=== PATIENT | male | born 1950 | race Caucasian/White ===

== ENCOUNTER 2023-09-06 15:29 | Inpatient (IN) | payer MEDICARE, OTHER ==
[~2023-09-06] VITALS: Ht 170.2 cm; Wt 60.3 kg
[2023-09-06] MEDS: IV NORMAL SALINE 1000 ML BAG IV ONE ×3 (15:55→20:30)
[2023-09-06 16:06] LABS: BASOPHILS % (AUTO) 0.2 % (0.0-2.0); EOSINOPHILS # (AUTO) 0.7 K/uL (0.0-0.7); EOSINOPHILS % (AUTO) 8.5 % (0.0-7.0); HEMATOCRIT 30.2 % (36.7-47.1); HEMOGLOBIN 9.8 g/dL (12.5-16.3); LYMPHOCYTES # (AUTO) 1.6 K/uL (0.8-4.8); LYMPHOCYTES % (AUTO) 18.7 % (20.5-51.5); MEAN CORPUSCULAR HEMOGLOBIN 28.6 uug (23.8-33.4); MEAN CORPUSCULAR HGB CONC 33 g/dL (32.5-36.3); MEAN CORPUSCULAR VOLUME 88.1 fL (73.0-96.2); MONOCYTES # (AUTO) 0.5 K/uL (0.1-1.30); MONOCYTES % (AUTO) 6.2 % (0.0-11.0); NEUTROPHILS # (AUTO) 5.5 K/uL (1.8-8.9); NEUTROPHILS % (AUTO) 66.4 % (38.5-71.5); PLATELET COUNT (AUTO) 188 K/uL (152-348); RED BLOOD CELL COUNT(AUTO) 3.43 MIL/uL (4.06-5.63); RED CELL DISTRIBUTION WIDTH 16.2 % (12.1-16.2); WHITE BLOOD COUNT (AUTO) 8.3 K/uL (3.6-10.2)
[2023-09-06 16:10] LABS: DIFFERENTIAL COMMENT 1
[2023-09-06 16:21] LABS: CALCIUM 8.7 mg/dL (8.5-10.1); CARBON DIOXIDE 32 mmol/L (21-32); CHLORIDE 104 mmol/L (98-107); CREATININE 0.9 mg/dL (0.6-1.3); GLUCOSE 207 mg/dL (74-106); POTASSIUM 3.3 mmol/L (3.5-5.1); SODIUM SERUM 142 mmol/L (136-145); UREA NITROGEN, BLOOD 12 mg/dL (7-18)
[2023-09-06 16:35] LABS: ALANINE AMINOTRANSFERASE 19 U/L (16-63); ALBUMIN 3.1 g/dL (3.4-5.0); ALKALINE PHOSPHATASE 232 U/L (50-136); ASPARTATE AMINOTRANSFERASE 21 U/L (15-37); BILIRUBIN,DIRECT 0.1 mg/dL (0.0-0.2); BILIRUBIN,TOTAL 0.4 mg/dL (0.2-1.0); TOTAL PROTEIN, SERUM 6.7 g/dL (6.4-8.2)
[2023-09-06 16:39] LABS: LACTIC ACID 2.1 mmol/L (0.4-2.0)
[2023-09-06] MEDS ORDERED: LORAZEPAM 2 MG/1 ML VIAL ONE (20:19)
[2023-09-06] MEDS ORDERED: PIPERACILLIN/TAZOBACTAM/D5W 50 ML IV ONE (20:20)
[2023-09-06] MEDS: LORAZEPAM 2 MG/1 ML VIAL IV ONE (20:30)
[2023-09-06] MEDS: PIPERACILLIN SODIUM/TAZOBACTAM 3.375 G in IV DEXTROSE 5% 50 ML IV ONE (20:30)
[2023-09-06] MEDS ORDERED: ONDANSETRON 4 MG/2 ML VIAL IV PRN (22:15)
[2023-09-06] MEDS ORDERED: MAGNESIUM HYDROXIDE 30 ML LIQUID UDC PO PRN (22:15)
[2023-09-06] MEDS ORDERED: HALOPERIDOL LACTATE 5 MG/1 ML VIAL ONE (22:39)
[2023-09-06] MEDS: HALOPERIDOL LACTATE 5 MG/1 ML VIAL IV ONE (22:42)
[2023-09-06 22:57] LABS: *BILIRUBIN,URIN NEGATIVE (NEGATIVE); *BLOOD, URINE NEGATIVE (NEGATIVE); *CLARITY,URINE CLEAR (CLEAR); *COLOR,URINE YELLOW (YELLOW); *KETONES,URINE NEGATIVE (NEGATIVE); *PROTEIN,URINE NEGATIVE (NEGATIVE); *UROBILINOGEN,URINE 0.2 E.U./dl (NORMAL); LEUKOCYTE ESTERASE ,URINE NEGATIVE (NEGATIVE); NITRITE, URINE NEGATIVE (NEGATIVE); UGLUCOSE TRACE (NEGATIVE)
[2023-09-07 00:09] LABS: BACTERIA,URINE FEW /HPF (NONE SEEN); RBC,URINE 0-3 /HPF (0-3); WBC,URINE NONE SEEN /HPF (0-3)
[2023-09-07 00:10] LABS: SQUAMOUS EPITHELIAL CELL,UR FEW /HPF (NONE SEEN)
[2023-09-07 00:26] VITALS: BP 142/86; TEMP 98; O2SAT 96
[2023-09-07] MEDS ORDERED: VANCOMYCIN IV 200 ML ONE (00:42)
[2023-09-07] MEDS ORDERED: PIPERACILLIN SODIUM/TAZO 3.375 GM VIAL ONE (00:43)
[2023-09-07] MEDS ORDERED: IV 0.9% SODIUM CHLORID+ 20 KCL 1,000 ML ONE (00:43)
[2023-09-07] MEDS: VANCOMYCIN IV 1,000 MG in IV DEXTROSE 5% 250 ML IV ONE (01:01)
[2023-09-07] MEDS: POTASSIUM CHLORIDE 20 MEQ in IV NS 1000 ML 1,000 ML IV PRN (02:39)
[2023-09-07 04:25] VITALS: BP 123/66; TEMP 97.9; O2SAT 95
[2023-09-07] MEDS: PIPERACILLIN SODIUM/TAZOBACTAM 3.375 G in IV DEXTROSE 5% 50 ML IV ONE (05:50)
[2023-09-07] MEDS: PANTOPRAZOLE SODIUM 40 MG TABLET.DR PO SCH (06:13)
[2023-09-07 07:44] LABS: BASOPHILS % (AUTO) 0.8 % (0.0-2.0); EOSINOPHILS # (AUTO) 0.1 K/uL (0.0-0.7); EOSINOPHILS % (AUTO) 1.2 % (0.0-7.0); HEMATOCRIT 31.3 % (36.7-47.1); HEMOGLOBIN 10.2 g/dL (12.5-16.3); LYMPHOCYTES # (AUTO) 1.9 K/uL (0.8-4.8); LYMPHOCYTES % (AUTO) 30.6 % (20.5-51.5); MEAN CORPUSCULAR HEMOGLOBIN 28.3 uug (23.8-33.4); MEAN CORPUSCULAR HGB CONC 33 g/dL (32.5-36.3); MEAN CORPUSCULAR VOLUME 86.6 fL (73.0-96.2); MONOCYTES # (AUTO) 0.6 K/uL (0.1-1.30); MONOCYTES % (AUTO) 10.4 % (0.0-11.0); NEUTROPHILS # (AUTO) 3.6 K/uL (1.8-8.9); PLATELET COUNT (AUTO) 165 K/uL (152-348); RED BLOOD CELL COUNT(AUTO) 3.62 MIL/uL (4.06-5.63); WHITE BLOOD COUNT (AUTO) 6.2 K/uL (3.6-10.2)
[2023-09-07 07:52] LABS: DIFFERENTIAL COMMENT 1
[2023-09-07 08:00] VITALS: BP 168/105; TEMP 97.9; O2SAT 96
[2023-09-07 08:08] LABS: AMMONIA < 10 umol/L (11-32); THYROID STIMULATING HORMONE 3.135 mIU/mL (0.358-3.740)
[2023-09-07 08:24] LABS: ALANINE AMINOTRANSFERASE 20 U/L (16-63); ALBUMIN 2.6 g/dL (3.4-5.0); ALKALINE PHOSPHATASE 214 U/L (50-136); ASPARTATE AMINOTRANSFERASE 12 U/L (15-37); BILIRUBIN,TOTAL 0.6 mg/dL (0.2-1.0); CARBON DIOXIDE 29 mmol/L (21-32); CHLORIDE 109 mmol/L (98-107); CHOLESTEROL 135 mg/dL (<200); CREATININE 0.8 mg/dL (0.6-1.3); GLUCOSE 190 mg/dL (74-106); HDL CHOLESTEROL 56 mg/dL (40-60); IRON, SERUM 46 ug/dL (50-175); MAGNESIUM 1.4 mg/dL (1.8-2.4); PHOSPHOROUS 4.2 mg/dL (2.5-4.9); POTASSIUM 3.5 mmol/L (3.5-5.1); SODIUM SERUM 145 mmol/L (136-145); TRIGLYCERIDES 148 MG/DL (30-150); UREA NITROGEN, BLOOD 7 mg/dL (7-18)
[2023-09-07 09:06] LABS: CALCIUM 8.3 mg/dL (8.5-10.1); LIPASE < 10 U/L (16-77)
[2023-09-07] MEDS: MORPHINE SULFATE 2 MG/1 ML DISP.SYRIN IV PRN (09:25)
[2023-09-07 11:40] VITALS: BP 158/100; TEMP 97.6; O2SAT 97
[2023-09-07] MEDS: ACETAMINOPHEN 325 MG TABLET PO PRN (12:56)
[2023-09-07] MEDS ORDERED: PIPERACILLIN SODIUM/TAZOBACTAM 3.375 G in IV DEXTROSE 5% 50 ML IV SCH (14:00)
[2023-09-07] MEDS: PIPERACILLIN SODIUM/TAZOBACTAM 3.375 G in IV DEXTROSE 5% 100 ML IV SCH (14:57)
[2023-09-07 16:25] VITALS: BP 155/91; TEMP 98.3; O2SAT 97
[2023-09-07] MEDS: VANCOMYCIN IV 1,000 MG in IV DEXTROSE 5% 250 ML IV SCH (16:26)
[2023-09-07] MEDS ORDERED: AMLO1CAP2 PO (18:04)
[2023-09-07] MEDS ORDERED: BLOO-360 IN (18:04)
[2023-09-07] MEDS ORDERED: ACET-2605 PO (18:04)
[2023-09-07] MEDS ORDERED: APIX5TAB4 PO (18:05)
[2023-09-07] MEDS ORDERED: LORA0.5T48 PO (18:06)
[2023-09-07] MEDS ORDERED: DIPH1TAB PO (18:06)
[2023-09-07] MEDS ORDERED: ENTE0.5T11 PO (18:08)
[2023-09-07] MEDS ORDERED: FLUD0.1T PO (18:08)
[2023-09-07] MEDS ORDERED: INSU100V7 SQ ×2 (18:09→18:10)
[2023-09-07] MEDS ORDERED: GLUCOSE TABLET PO (18:09)
[2023-09-07] MEDS ORDERED: INSU100V39 SQ (18:11)
[2023-09-07] MEDS ORDERED: AMYL1CAP58 PO (18:11)
[2023-09-07] MEDS ORDERED: MESA1.2T3 PO (18:12)
[2023-09-07] MEDS ORDERED: OLAN10TA6 PO (18:13)
[2023-09-07] MEDS ORDERED: MIRT-93 PO (18:13)
[2023-09-07] MEDS ORDERED: PANT40TA49 PO (18:15)
[2023-09-07] MEDS ORDERED: PRED2.5T PO (18:15)
[2023-09-07] MEDS ORDERED: PRED-170 PO (18:16)
[2023-09-07] MEDS ORDERED: TADA5TAB13 PO (18:18)
[2023-09-07] MEDS ORDERED: ROSU5TAB PO (18:18)
[2023-09-08] MEDS ORDERED: CEFEPIME HCL 1 G VIAL ONE (01:50)
[2023-09-08] MEDS: CEFEPIME HCL 1 G in IV DEXTROSE 5% 50 ML IV SCH ×2 (02:08→10:43)
[2023-09-08 06:51] LABS: CALCIUM 8.4 mg/dL (8.5-10.1); CREATININE 0.8 mg/dL (0.6-1.3); POTASSIUM 3.6 mmol/L (3.5-5.1)
[2023-09-08 06:54] LABS: BASOPHILS % (AUTO) 0.4 % (0.0-2.0); EOSINOPHILS # (AUTO) 0.2 K/uL (0.0-0.7); EOSINOPHILS % (AUTO) 2.2 % (0.0-7.0); HEMATOCRIT 32.5 % (36.7-47.1); HEMOGLOBIN 10.7 g/dL (12.5-16.3); LYMPHOCYTES # (AUTO) 1.9 K/uL (0.8-4.8); LYMPHOCYTES % (AUTO) 25.7 % (20.5-51.5); MEAN CORPUSCULAR HEMOGLOBIN 28.3 uug (23.8-33.4); MEAN CORPUSCULAR HGB CONC 33 g/dL (32.5-36.3); MONOCYTES # (AUTO) 0.9 K/uL (0.1-1.30); MONOCYTES % (AUTO) 12.3 % (0.0-11.0); NEUTROPHILS # (AUTO) 4.4 K/uL (1.8-8.9); NEUTROPHILS % (AUTO) 59.4 % (38.5-71.5); PLATELET COUNT (AUTO) 166 K/uL (152-348); RED BLOOD CELL COUNT(AUTO) 3.78 MIL/uL (4.06-5.63); RED CELL DISTRIBUTION WIDTH 16.2 % (12.1-16.2); WHITE BLOOD COUNT (AUTO) 7.4 K/uL (3.6-10.2)
[2023-09-08 07:04] LABS: DIFFERENTIAL COMMENT 1
[2023-09-08 07:55] VITALS: BP 146/98; TEMP 98.1; O2SAT 97
[2023-09-08 08:12] LABS: FERRITIN 64 ng/mL (26-388); LACTATE DEHYDROGENASE 232 U/L (85-227)
[2023-09-08] MEDS ORDERED: DEXTROSE 50% 50 ML DISP.SYRIN IV PRN (11:15)
[2023-09-08] MEDS ORDERED: ACETAMINOPHEN ES 500 MG TABLET- SA PATIENTS-PAIN ONLY PO PRN (11:15)
[2023-09-08] MEDS ORDERED: OLANZAPINE 5 MG TABLET PO SCH (11:15)
[2023-09-08] MEDS ORDERED: HOME MED MISCELLANEOUS XX SCH ×3 (11:15)
[2023-09-08] MEDS ORDERED: predniSONE 5 MG TABLET PO SCH (11:15)
[2023-09-08] MEDS ORDERED: PANTOPRAZOLE SODIUM 40 MG TABLET.DR PO SCH (11:15)
[2023-09-08] MEDS ORDERED: ENTECAVIR 0.5 MG PO SCH (11:15)
[2023-09-08] MEDS: FLUDROCORTISONE ACETATE 0.1 MG TABLET PO SCH (11:52)
[2023-09-08] MEDS: AMLODIPINE 5 MG TABLET PO SCH (11:52)
[2023-09-08] MEDS: BENAZEPRIL HCL 20 MG TABLET PO SCH (11:52)
[2023-09-08 11:55] VITALS: BP 137/94; TEMP 98; O2SAT 97
[2023-09-08] MEDS: APIXABAN 5 MG TABLET PO SCH (11:56)
[2023-09-08] MEDS: BLOOD SUGAR DIAGNOSTIC 1 EACH STRIP VI SCH (11:57)
[2023-09-08] MEDS: INSULIN REGULAR, HUMAN 300 UNIT/3 ML VIAL SQ PRN (12:00)
[2023-09-08] MEDS: LIPASE/PROTEASE/AMYLASE 4200 UNITS CAPSULE.DR PO SCH (13:26)
[2023-09-08] MEDS: OLANZAPINE ZYDIS 5 MG TAB.RAPDIS PO SCH (13:29)
[2023-09-08 14:19] LABS: HIV-1/2 ANTIBODY NON REACTIVE (NONREACTIVE)
[2023-09-08 14:20] LABS: HIV-1 p24 ANTIGEN NON REACTIVE (NONREACTIVE)
[2023-09-08] MEDS: predniSONE 2.5 MG TABLET PO SCH (14:33)
[2023-09-08 16:00] VITALS: BP 117/77; TEMP 97.7; O2SAT 98
[2023-09-08] MEDS ORDERED: VENL75CA62 PO (16:10)
[2023-09-08] MEDS: DIPHENOXYLATE HCL/ATROP SULF TABLET PO SCH (16:44)
[2023-09-08] MEDS: VENLAFAXINE XR 75 MG TAB.ER.24H PO SCH (16:48)
[2023-09-08] MEDS: VANCOMYCIN IV 1,000 MG in IV DEXTROSE 5% 250 ML IV SCH (18:43)
[2023-09-08] MEDS ORDERED: IV NORMAL SALINE 250 ML IV ONE (19:42)
[2023-09-08] MEDS ORDERED: SWABABLE VALVE TRANSFER SET EA MC ONE (19:42)
[2023-09-08] MEDS ORDERED: IOHEXOL 350 100 ML INFUS..BTL ONE (19:43)
[2023-09-08] MEDS: LORAZEPAM 0.5 MG TABLET PO SCH (20:38)
[2023-09-08] MEDS: MIRTAZAPINE 15 MG TAB.RAPDIS SL SCH (20:39)
[2023-09-08] MEDS: ATORVASTATIN 10 MG TABLET PO SCH (20:39)
[2023-09-08 20:42] VITALS: BP 134/73; TEMP 99.4; O2SAT 93
[2023-09-08] MEDS: INSULIN GLARGINE,HUM 300 UNITS/3 ML CARTRIDGE SQ SCH (20:55)
[2023-09-08] MEDS ORDERED: MIRTAZAPINE 15 MG TABLET PO SCH (21:00)
[2023-09-09] VITALS (7 sets, daily range): BP systolic 103–130; BP diastolic 44–80; TEMP 97.6–98.6; O2SAT 92–97
[2023-09-09 07:48] LABS: BASOPHILS % (AUTO) 0.5 % (0.0-2.0); EOSINOPHILS # (AUTO) 0.2 K/uL (0.0-0.7); EOSINOPHILS % (AUTO) 4.6 % (0.0-7.0); HEMOGLOBIN 10.3 g/dL (12.5-16.3); LYMPHOCYTES # (AUTO) 1.2 K/uL (0.8-4.8); LYMPHOCYTES % (AUTO) 22.5 % (20.5-51.5); MEAN CORPUSCULAR HEMOGLOBIN 28.8 uug (23.8-33.4); MEAN CORPUSCULAR HGB CONC 33 g/dL (32.5-36.3); MEAN CORPUSCULAR VOLUME 86.9 fL (73.0-96.2); MONOCYTES # (AUTO) 0.7 K/uL (0.1-1.30); NEUTROPHILS # (AUTO) 3.2 K/uL (1.8-8.9); NEUTROPHILS % (AUTO) 59.4 % (38.5-71.5); PLATELET COUNT (AUTO) 122 K/uL (152-348); RED BLOOD CELL COUNT(AUTO) 3.57 MIL/uL (4.06-5.63); RED CELL DISTRIBUTION WIDTH 16.2 % (12.1-16.2); WHITE BLOOD COUNT (AUTO) 5.4 K/uL (3.6-10.2)
[2023-09-09 07:50] LABS: CALCIUM 8.2 mg/dL (8.5-10.1); CREATININE 0.8 mg/dL (0.6-1.3); POTASSIUM 3.8 mmol/L (3.5-5.1)
[2023-09-09 08:06] LABS: FOLATE (FOLIC ACID), SERUM >20.0 ng/mL (>3.0)
[2023-09-09 08:12] LABS: DIFFERENTIAL COMMENT 1
[2023-09-09] MEDS: predniSONE 5 MG TABLET PO SCH (08:19)
[2023-09-09] MEDS ORDERED: INSULIN GLARGINE,HUM 300 UNITS/3 ML CARTRIDGE SQ SCH (09:00)
[2023-09-09 11:06] LABS: AFP, TUMOR MARKER <1.8 ng/mL (0.0-8.4); CARBOHYDRATE ANTIGEN, 19-9 40 U/mL (0-35); CARCINOEMBRYONIC AG (CEA) 3.4 ng/mL (0.0-4.7)
[2023-09-09 12:12] LABS: *IMMUNOGLOBULIN G, SERUM 993 mg/dL (603-1613); IMMUNOGLOBULIN A, SERUM 114 mg/dL (61-437); IMMUNOGLOBULIN M, SERUM 91 mg/dL (15-143)
[2023-09-09 15:07] LABS: A/G RATIO 1.1 (0.7-1.7); ALBUMIN 2.8 g/dL (2.9-4.4); ALPHA-1-GLOBULIN 0.3 g/dL (0.0-0.4); ALPHA-2-GLOBULIN 0.7 g/dL (0.4-1.0); BETA GLOBULIN 0.8 g/dL (0.7-1.3); FREE LAMBDA LT CHAIN SERUM 20.1 mg/L (5.7-26.3); GAMMA GLOBULIN 0.8 g/dL (0.4-1.8); GLOBULIN, TOTAL 2.6 g/dL (2.2-3.9); KAPPA/LAMBDA RATIO SERUM 1.49 (0.26-1.65); M-SPIKE Not Observed g/dL (Not Observed)
[2023-09-10 00:10] VITALS: BP 102/54; TEMP 98.6; O2SAT 98
[2023-09-10 04:35] VITALS: BP 120/74; TEMP 98.2; O2SAT 98
[2023-09-10 07:16] LABS: BASOPHILS # (AUTO) 0.3 K/UL (0.0-0.2); EOSINOPHILS # (AUTO) 0.2 K/uL (0.0-0.7); EOSINOPHILS % (AUTO) 3.9 % (0.0-7.0); HEMATOCRIT 31.1 % (36.7-47.1); HEMOGLOBIN 9.8 g/dL (12.5-16.3); LYMPHOCYTES # (AUTO) 1.6 K/uL (0.8-4.8); LYMPHOCYTES % (AUTO) 25.2 % (20.5-51.5); MEAN CORPUSCULAR HEMOGLOBIN 28.5 uug (23.8-33.4); MEAN CORPUSCULAR HGB CONC 32 g/dL (32.5-36.3); MONOCYTES # (AUTO) 0.7 K/uL (0.1-1.30); MONOCYTES % (AUTO) 10.1 % (0.0-11.0); NEUTROPHILS # (AUTO) 3.7 K/uL (1.8-8.9); NEUTROPHILS % (AUTO) 56.8 % (38.5-71.5); PLATELET COUNT (AUTO) 131 K/uL (152-348); RED BLOOD CELL COUNT(AUTO) 3.45 MIL/uL (4.06-5.63); RED CELL DISTRIBUTION WIDTH 16.5 % (12.1-16.2); WHITE BLOOD COUNT (AUTO) 6.5 K/uL (3.6-10.2)
[2023-09-10 07:37] LABS: DIFFERENTIAL COMMENT 1
[2023-09-10 07:39] LABS: CALCIUM 8.2 mg/dL (8.5-10.1); CARBON DIOXIDE 29 mmol/L (21-32); CHLORIDE 105 mmol/L (98-107); GLUCOSE 105 mg/dL (74-106); POTASSIUM 3.5 mmol/L (3.5-5.1); SODIUM SERUM 141 mmol/L (136-145); UREA NITROGEN, BLOOD 7 mg/dL (7-18)
[2023-09-10 07:51] VITALS: BP 130/75; TEMP 97.5; O2SAT 95
[2023-09-10] MEDS: CREON 24000 UNIT PO SCH (09:51)
[2023-09-10] MEDS: MESALAMINE 1.2 GM PO SCH (09:51)
[2023-09-10] MEDS: TADALAFIL 5 MG PO SCH (09:54)
[2023-09-10 11:27] VITALS: BP 163/91; TEMP 99.1; O2SAT 94
[2023-09-10 15:57] VITALS: BP 143/71; TEMP 97.5; O2SAT 98
[2023-09-10 19:45] VITALS: BP 110/64; TEMP 98.2; O2SAT 98
[2023-09-10] MEDS: INSULIN GLARGINE,HUM 300 UNITS/3 ML CARTRIDGE SQ ONE (21:38)
[2023-09-11 05:54] VITALS: BP 105/55; TEMP 98.3; O2SAT 98
[2023-09-11 07:28] LABS: BASOPHILS % (AUTO) 0.2 % (0.0-2.0); EOSINOPHILS # (AUTO) 0.2 K/uL (0.0-0.7); EOSINOPHILS % (AUTO) 2.3 % (0.0-7.0); HEMATOCRIT 28.7 % (36.7-47.1); HEMOGLOBIN 9.2 g/dL (12.5-16.3); LYMPHOCYTES # (AUTO) 2.2 K/uL (0.8-4.8); LYMPHOCYTES % (AUTO) 23.8 % (20.5-51.5); MEAN CORPUSCULAR HEMOGLOBIN 28.3 uug (23.8-33.4); MEAN CORPUSCULAR HGB CONC 32 g/dL (32.5-36.3); MEAN CORPUSCULAR VOLUME 88.8 fL (73.0-96.2); MONOCYTES # (AUTO) 0.7 K/uL (0.1-1.30); MONOCYTES % (AUTO) 8.1 % (0.0-11.0); NEUTROPHILS % (AUTO) 65.6 % (38.5-71.5); PLATELET COUNT (AUTO) 128 K/uL (152-348); RED BLOOD CELL COUNT(AUTO) 3.23 MIL/uL (4.06-5.63); RED CELL DISTRIBUTION WIDTH 16.5 % (12.1-16.2); WHITE BLOOD COUNT (AUTO) 9.2 K/uL (3.6-10.2)
[2023-09-11 07:37] LABS: DIFFERENTIAL COMMENT 1
[2023-09-11 07:41] LABS: CALCIUM 8.3 mg/dL (8.5-10.1); CARBON DIOXIDE 30 mmol/L (21-32); CHLORIDE 105 mmol/L (98-107); CREATININE 0.9 mg/dL (0.6-1.3); GLUCOSE 81 mg/dL (74-106); POTASSIUM 3.3 mmol/L (3.5-5.1); SODIUM SERUM 141 mmol/L (136-145); UREA NITROGEN, BLOOD 13 mg/dL (7-18)
[2023-09-11 08:13] VITALS: BP 112/65; TEMP 98.1; O2SAT 99
[2023-09-11] MEDS: INSULIN GLARGINE,HUM 300 UNITS/3 ML CARTRIDGE SQ SCH ×2 (09:00→20:35)
[2023-09-11] MEDS: POTASSIUM CHLORIDE 20 MEQ TAB.PRT.SR PO ONE (10:35)
[2023-09-11 11:35] VITALS: BP 101/59; TEMP 97.3; O2SAT 97
[2023-09-11] MEDS: SOD FERRIC GLUC COMPLX/SUCROSE 125 MG in IV NORMAL SALINE 100 ML IV SCH (13:00)
[2023-09-11 15:47] VITALS: BP 107/58; TEMP 97.9; O2SAT 93
[2023-09-11 20:00] VITALS: BP 117/76; TEMP 98; O2SAT 97
[2023-09-11] MEDS ORDERED: INSULIN GLARGINE,HUM 300 UNITS/3 ML CARTRIDGE SQ SCH (21:00)
[2023-09-12 00:15] VITALS: BP 99/52; TEMP 97.4; O2SAT 18
[2023-09-12 04:00] VITALS: BP 112/69; TEMP 97.5; O2SAT 96
[2023-09-12 06:46] LABS: CALCIUM 8.5 mg/dL (8.5-10.1); CREATININE 0.9 mg/dL (0.6-1.3); POTASSIUM 3.1 mmol/L (3.5-5.1)
[2023-09-12 06:47] LABS: BASOPHILS % (AUTO) 0.4 % (0.0-2.0); EOSINOPHILS # (AUTO) 0.2 K/uL (0.0-0.7); EOSINOPHILS % (AUTO) 2.4 % (0.0-7.0); HEMATOCRIT 26.7 % (36.7-47.1); HEMOGLOBIN 8.7 g/dL (12.5-16.3); LYMPHOCYTES # (AUTO) 2.2 K/uL (0.8-4.8); LYMPHOCYTES % (AUTO) 31.9 % (20.5-51.5); MEAN CORPUSCULAR HEMOGLOBIN 28.8 uug (23.8-33.4); MEAN CORPUSCULAR HGB CONC 33 g/dL (32.5-36.3); MEAN CORPUSCULAR VOLUME 88.2 fL (73.0-96.2); MONOCYTES # (AUTO) 0.8 K/uL (0.1-1.30); MONOCYTES % (AUTO) 11.6 % (0.0-11.0); NEUTROPHILS # (AUTO) 3.7 K/uL (1.8-8.9); NEUTROPHILS % (AUTO) 53.7 % (38.5-71.5); PLATELET COUNT (AUTO) 131 K/uL (152-348); RED BLOOD CELL COUNT(AUTO) 3.02 MIL/uL (4.06-5.63); RED CELL DISTRIBUTION WIDTH 16.9 % (12.1-16.2); WHITE BLOOD COUNT (AUTO) 6.9 K/uL (3.6-10.2)
[2023-09-12 06:51] LABS: DIFFERENTIAL COMMENT 1
[2023-09-12 07:56] VITALS: BP 120/69; TEMP 97.7; O2SAT 99
[2023-09-12] MEDS: POTASSIUM CHLORIDE 20 MEQ TAB.PRT.SR PO ONE (08:22)
[2023-09-12] MEDS: LORAZEPAM 1 MG TABLET PO PRN (09:30)
[2023-09-12] MEDS ORDERED: LORA0.5T48 PO (14:19)
[2023-09-12 15:58] VITALS: BP 131/68; TEMP 98.5; O2SAT 97
[2023-09-12 21:59] VITALS: BP 106/72; TEMP 97.7; O2SAT 96
[2023-09-13 07:22] VITALS: BP 127/68; TEMP 98.1; O2SAT 96
[2023-09-13 11:46] VITALS: BP 127/81; TEMP 98.3; O2SAT 96
== END 2023-09-13 13:10 | disposition home or self-care (01) | DRG 640 ==
LOC: ER 15:32 → TELE3 22:00 → MEDSURG3 09-13 10:30
PROVIDERS: ADMIT Internal Medicine; ATTEND Nurse Practitioner Acute Care
PROC: 05H933Z Insertion of Infusion Device into Right Brachial Vein, Percutaneous Approach (ICD-10-PCS; principal; 2023-09-07)
PROC: 05HC33Z Insertion of Infusion Device into Left Basilic Vein, Percutaneous Approach (ICD-10-PCS; 2023-09-08)
DX: E87.21 Acute metabolic acidosis (principal); G92.8 Other toxic encephalopathy; C78.7 Secondary malignant neoplasm of liver and intrahepatic bile duct; K51.90 Ulcerative colitis, unspecified, without complications; F03.94 Unspecified dementia, unspecified severity, with anxiety; F03.93 Unspecified dementia, unspecified severity, with mood disturbance; E87.6 Hypokalemia; I95.9 Hypotension, unspecified; M32.9 Systemic lupus erythematosus, unspecified; B19.20 Unspecified viral hepatitis C without hepatic coma; Z85.118 Personal history of other malignant neoplasm of bronchus and lung; G89.29 Other chronic pain; E78.5 Hyperlipidemia, unspecified; E11.65 Type 2 diabetes mellitus with hyperglycemia; Z78.1 Physical restraint status; K21.9 Gastro-esophageal reflux disease without esophagitis; D64.9 Anemia, unspecified; Z90.2 Acquired absence of lung [part of]; Z90.5 Acquired absence of kidney; Z90.411 Acquired partial absence of pancreas; Z86.711 Personal history of pulmonary embolism; Z79.01 Long term (current) use of anticoagulants; Z85.528 Personal history of other malignant neoplasm of kidney; Z79.60 Long term (current) use of unspecified immunomodulators and immunosuppressants; Z79.4 Long term (current) use of insulin; Z79.899 Other long term (current) drug therapy
CPT/HCPCS: 36415; 70470; 70553; 71045; 71250; 82105; 82378; 82746; 82784; 83550; 83605; 83615; 83690; 83735; 84100; 84155; 84165; 84443; 84484; 85025; 85730; 86301; 86334; 86803; 87040; 87806; 93005; A4606; A4663; G0378; J0692; J1630; J1815; J2060; J2270; J2543; J2916; J3370; J3480; J7040; J7050; J7512; Q9967